=== PATIENT | female | born 1960 | race Caucasian/White ===

== ENCOUNTER 2017-07-18 10:40 | Emergency (ER) | payer OTHER ==
[2017-07-18 11:04] VITALS: BP 127/76; PULSE 68; TEMP 98.3; BMI 24.9
[2017-07-18] MEDS ORDERED: IBUPROFEN 400 MG TABLET (FP) PO ONE ×2 (11:14→11:17)
[2017-07-18] MEDS ORDERED: ONDANSETRON *ODT* 4 MG TABLET SL ONE (11:15)
[2017-07-18] MEDS ORDERED: ONDANSETRON *ODT* 4 MG TABLET ONE (11:17)
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
== END 2017-07-18 11:39 | disposition home or self-care (01) ==
LOC: FER 10:40
DX: S70.02XA Contusion of left hip, initial encounter (principal); S16.1XXA Strain of muscle, fascia and tendon at neck level, initial encounter; V43.52XA Car driver injured in collision with other type car in traffic accident, initial encounter; Y93.89 Activity, other specified; Y92.410 Unspecified street and highway as the place of occurrence of the external cause
CPT/HCPCS: 99282-25

== ENCOUNTER 2022-08-16 13:37 | Emergency (ER) | payer BC, OTHER ==
[2022-08-16 13:54] VITALS: BP 119/71; PULSE 73; RESP 20; TEMP 98.3; BMI 24.3
[2022-08-16] MEDS ORDERED: ONDANSETRON 4 MG TABLET PO ONE (14:00)
[2022-08-16] MEDS ORDERED: MECLIZINE HCL 25 MG TABLET (FP) PO ONE (14:00)
[2022-08-16] MEDS ORDERED: MECLIZINE HCL 12.5 MG TABLET ONE (14:04)
[2022-08-16] MEDS ORDERED: ONDANSETRON *ODT* 4 MG TABLET ONE ×2 (14:04→14:18)
== END 2022-08-16 15:08 | disposition home or self-care (01) ==
LOC: FER 13:37
DX: S06.0X0A Concussion without loss of consciousness, initial encounter (principal); S09.90XA Unspecified injury of head, initial encounter; R42 Dizziness and giddiness; W01.0XXA Fall on same level from slipping, tripping and stumbling without subsequent striking against object, initial encounter
CPT/HCPCS: 70450-TC; 99285-25